=== PATIENT | female | born 1945 | race Caucasian/White ===

== ENCOUNTER 2017-03-29 20:50 | Inpatient (IN) | payer MEDICARE, OTHER ==
[~2017-03-29] VITALS: Ht 157.5 cm; Wt 71.0 kg
[2017-03-29 21:32] VITALS: BP 116/58; PULSE 79; RESP 17; TEMP 98.2; O2SAT 95
[2017-03-29] MEDS ORDERED: NALOXONE HCL 0.4 MG/ML AMP IV PUSH PRN (22:15)
[2017-03-29] MEDS ORDERED: SODIUM CHLORIDE 0.9% FLUSH 10 ML FLUSH IV FLUSH PRN (22:15)
[2017-03-29] MEDS ORDERED: RESP: ALBUTEROL 2.5 MG/IPRATROPIUM 0.5 MG NEB (PRN) NEB (22:15)
[2017-03-29] MEDS ORDERED: DEXTROSE 50% IN WATER 50 ML VIAL(D50) IV PUSH PRN (22:30)
[2017-03-29] MEDS ORDERED: GLUCAGON 1 MG/ML VIAL OTHER PRN (22:30)
[2017-03-29 22:40] VITALS: O2SAT 98
[2017-03-29] MEDS: RESP: ALBUTEROL 2.5 MG/IPRATROPIUM 0.5 MG NEB (SCH) NEB (22:48)
[2017-03-29] MEDS: ENOXAPARIN SODIUM 40 MG/0.4 ML SYRINGE SQ SCH (23:07)
--- NOTE | 2017-03-29 23:13 | HHI.HP ---
HPI Service [facility] . Primary Care Physician Juan Sanchez M.D. . Admission Diagnosis Sepsis, Pneumonia, left lobe Diagnoses: (1) Sepsis (2) Pneumonia involving left lung Chief Complaint: Cough, shortness of breath, fevers Travel History International Travel<30 Days: Yes Contact w/Intl Traveler <30 Da: Yes Name of Country Traveled to: [place] Traveled to Known Affected Are: No History of Present Illness Ms. Bowie is a Kazakh speaking female with a history of type 2 diabetes mellitus, hypertension, asthma, and left breast cancer status post mastectomy who presented to the [place] emergency room on 03/28/2017 complaining of fever, shortness of breath, and productive cough cough who was found to have sepsis and left lobe pneumonia. She has been transferred to [facility] for admission and medical management. The patient is seen in the CDU. She has her son at the bedside. I have offered professional translation service but the patient adamantly refuses and wants to allow her son to speak for her. She is very sleepy and does not remain awake through most of interview despite my best efforts. The patient's son indicates she's very fatigued and tired. He states that she was visiting family in [place] on vacation and returned on 03/28/16 via air travel and was febrile, short of breath, and producing a yellow sputum with frequent congested cough. Fever was as high as 103 and was accompanied by chills and anterior chest wall pain with coughing (only with coughing). She denies any nausea, vomiting, or diarrhea. There are no family members with similar symptoms. Past Family Social History Past Medical History Type 2 diabetes mellitus Hypertension Asthma Left breast cancer status post mastectomy, radiation, and chemotherapy . Past Surgical History Left mastectomy Cholecystectomy . Reported Medications Glyburide Metformin Singulair Lisinopril . Allergies: Coded Allergies: No Known Allergies (Verified Allergy, Unknown, 03/29/17) Active Ordered Medications Current Medications Sodium Chloride (NS Flush) 2 ml UNSCH PRN IV FLUSH FLUSH AFTER USING IV ACCESS ; Start 03/29/17 at 22:15 Sodium Chloride (NS Flush) 2 ml BID IV FLUSH ; Start 03/30/17 at 09:00 Acetaminophen (Tylenol) 650 mg Q4H PRN PO TEMP > 100.4; Start 03/29/17 at 22:15 Enoxaparin Sodium (Lovenox Inj) 40 mg Q24H SQ Last administered on 03/29/17at 23 :07; Start 03/29/17 at 22:00 Naloxone HCl (Narcan Inj) 0.4 mg UNSCH PRN IV PUSH SEE LABEL COMMENTS; Start at 22:15 Azithromycin 500 mg/Sodium Chloride 250 ml @ 250 mls/hr Q24H IV ; Start at 19:00 Ceftriaxone Sodium 1000 mg/ Sodium Chloride 100 ml @ 200 mls/hr Q24H IV ; Start 03/30/17 at 18:00 Albuterol/ Ipratropium (Duoneb Neb) 1 ampule Q6HR NEB NEB Last administered on 03/29/17at 22:48; Start 03/29/17 at 22:15 Albuterol/ Ipratropium (Duoneb Neb) 1 ampule Q2HR NEB PRN NEB SOB/WHEEZING; Start 03/29/17 at 22:15 Dextrose (D50w (Vial) Inj) 50 ml UNSCH PRN IV PUSH HYPOGLYCEMIA-SEE COMMENTS; Start 03/29/17 at 22:30 Glucagon (Glucagon Inj) 1 mg UNSCH PRN OTHER HYPOGLYCEMIA-SEE COMMENTS; Start 03/29/17 at 22:30 Insulin Aspart (NovoLOG SUPPLEMENTAL SCALE) 1 ACHS SLIDING SCALE SQ ; Start 03/05 at 08:00 . Family History No other family members with fevers or respiratory symptoms . Social History Tobacco: Quit smoking 10 years ago, smoked 1 pack per day since teens Alcohol: Rare social alcohol intake Illicit Drugs: Denies . Physical Exam Vital Signs Vital Signs Date Time Temp Pulse Resp B/P (MAP) Pulse Ox O2 Delivery O2 Flow Rate FiO2 03/29/17 21:32 98.2 79 17 116/58 (77) 95 Physical Exam GENERAL: This is a fatigued and lethargic elderly female patient, in no apparent distress. SKIN: No rashes. Cool and dry. HEAD: Atraumatic. Normocephalic. EYES: No scleral icterus. No injection or drainage. ENT: Nose without bleeding, purulent drainage. NECK: Trachea midline. No JVD. CARDIOVASCULAR: Occasional premature heartbeats noted; no gallops, or rubs. I/ systolic murmur best heard in mitral region. RESPIRATORY: Breath sounds diminished on left and at right base. No wheezes, rales, or rhonchi. GASTROINTESTINAL: Abdomen soft, non-tender, nondistended. No guarding. MUSCULOSKELETAL: Extremities without clubbing, cyanosis, or edema. No calf tenderness. NEUROLOGICAL: Fatigued and lethargic but follows commands and answers questions. Normal speech. . Laboratory From [place]: Laboratory Tests Test 03/29/17 17:20 03/29/17 19:45 White Blood Count 19.1 TH/MM3 Red Blood Count 3.84 MIL/MM3 Hemoglobin 11.5 GM/DL Hematocrit 33.7 % Mean Corpuscular Volume 87.8 FL Mean Corpuscular Hemoglobin 29.9 PG Mean Corpuscular Hemoglobin Concent 34.1 % Red Cell Distribution Width 13.3 % Platelet Count 206 TH/MM3 Mean Platelet Volume 10.2 FL Immature Granulocyte % (Auto) 0.8 % Neutrophils (%) (Auto) 86.3 % Lymphocytes (%) (Auto) 6.4 % Monocytes (%) (Auto) 6.3 % Eosinophils (%) (Auto) 0.0 % Basophils (%) (Auto) 0.2 % Immature Granulocyte # (Auto) 0.2 TH/MM3 Neutrophils # (Auto) 16.5 TH/MM3 Lymphocytes # (Auto) 1.2 TH/MM3 Monocytes # (Auto) 1.2 TH/MM3 Eosinophils # (Auto) 0.0 TH/MM3 Basophils # (Auto) 0.0 TH/MM3 CBC Comment AUTO DIFF Differential Total Cells Counted 100 Neutrophils % (Manual) 58 % Band Neutrophils % 30 % Lymphocytes % 6 % Monocytes % 6 % Neutrophils # (Manual) 16.8 TH/MM3 Differential Comment FINAL DIFF MANUAL Toxic Granulation 1+ Toxic Vacuolation PRESENT Dohle Bodies PRESENT Platelet Estimate NORMAL Platelet Morphology Comment NORMAL Red Cell Morphology Comment NORMAL Blood Urea Nitrogen 14 MG/DL Creatinine 1.00 MG/DL Random Glucose 171 MG/DL Total Protein 7.1 GM/DL Albumin 3.2 GM/DL Calcium Level 8.9 MG/DL Alkaline Phosphatase 49 U/L Aspartate Amino Transf (AST/SGOT) 22 U/L Alanine Aminotransferase (ALT/SGPT) 21 U/L Total Bilirubin 0.7 MG/DL Sodium Level 136 MEQ/L Potassium Level 3.4 MEQ/L Chloride Level 101 MEQ/L Carbon Dioxide Level 26.0 MEQ/L Anion Gap 9 MEQ/L Estimat Glomerular Filtration Rate 55 ML/MIN Troponin I 0.02 NG/ML Lactic Acid Level 1.0 mmol/L Imaging From [place]: Last Impressions Chest X-Ray 03/29/17 1711 Signed Impressions: Service Date/Time: March 17:56 - CONCLUSION: Consolidative opacity in the left lung most characteristic of pneumonia. Ignacio Santos MD . Caprini VTE Risk Assessment Caprini VTE Risk Assessment: Mod/High Risk (score >= 2) Caprini Risk Assessment Model Point Value = 1 Point Value = 2 Point Value = 3 Point Value = 5 Age 41-60 Minor surgery BMI > 25 kg/m2 Swollen legs Varicose veins or History of unexplained or recurrent spontaneous Oral contraceptives or hormone replacement Sepsis (< 1 month) Serious lung disease, including pneumonia (< 1 month) Abnormal pulmonary function Acute myocardial infarction Congestive heart failure (< 1 month) History of inflammatory bowel disease Medical patient at bed rest Age 61-74 Arthroscopic surgery Major open surgery (> 45 min) Laparoscopic surgery (> 45 min) Malignancy Confined to bed (> 72 hours) Immobilizing plaster cast Central venous access Age >= 75 History of VTE Family history of VTE Factor V Leiden Prothrombin [id number] Lupus anticoagulant Anticardiolipin antibodies Elevated serum homocysteine Heparin-induced thrombocytopenia Other congenital or acquired thrombophilia Stroke (< 1 month) Elective arthroplasty Hip, pelvis, or leg fracture Acute spinal cord injury (< 1 month) Prophylaxis Regimen Total Risk Factor Score Risk Level Prophylaxis Regimen 0-1 Low Early ambulation 2 Moderate Order ONE of the following: *Sequential Compression Device (SCD) *Heparin 5000 units SQ BID 3-4 Higher Order ONE of the following medications: *Heparin 5000 units SQ TID *Enoxaparin/Lovenox 40 mg SQ daily (WT < 150 kg, CrCl > 30 mL/min) *Enoxaparin/Lovenox 30 mg SQ daily (WT < 150 kg, CrCl > 10-29 mL/min) *Enoxaparin/Lovenox 30 mg SQ BID (WT < 150 kg, CrCl > 30 mL/min) AND/OR *Sequential Compression Device (SCD) 5 or more Highest Order ONE of the following medications: *Heparin 5000 units SQ TID (Preferred with Epidurals) *Enoxaparin/Lovenox 40 mg SQ daily (WT < 150 kg, CrCl > 30 mL/min) *Enoxaparin/Lovenox 30 mg SQ daily (WT < 150 kg, CrCl > 10-29 mL/min) *Enoxaparin/Lovenox 30 mg SQ BID (WT < 150 kg, CrCl > 30 mL/min) AND *Sequential Compression Device (SCD) Assessment and Plan Problem List: (1) Pneumonia involving left lung ICD Code: J18.9 - Pneumonia, unspecified organism (2) Sepsis ICD Code: A41.9 - Sepsis, unspecified organism (3) Type 2 diabetes mellitus ICD Code: E11.9 - Type 2 diabetes mellitus without complications Status: Chronic (4) Asthma ICD Code: J45.909 - Unspecified asthma, uncomplicated Status: Chronic (5) Hypertension ICD Code: I10 - Essential (primary) hypertension Status: Chronic Assessment and Plan Ms. Bowie is a Kazakh speaking female with a history of type 2 diabetes mellitus, hypertension, asthma, and left breast cancer status post mastectomy who presented to the [place] emergency room on 03/28/2017 complaining of fever, shortness of breath, and productive cough cough who was found to have sepsis and left lobe pneumonia. She has been transferred to [facility] for admission and medical management. Left lung pneumonia Sepsis - Temperature 103.1 on admission, tachycardia with pulse of 95, hypoxia with supplemental oxygen being required to maintain oxygen saturation greater than 92 %, pneumonia on chest x-ray - meets criteria for sepsis - CT pulmonary angiogram negative for PE - Negative for flu A and B - Antibiotics: Azithromycin 500 mg IV every 24 hours and Ceftriaxone 1 g every 24 hours - Duo nebulizers every 6 hours scheduled and every 2 hours as needed for shortness of breath and wheezing - We'll consult physical therapy to help prevent debility - Supplemental oxygen titrated to maintain oxygen saturation greater than 92% Type 2 Diabetes Mellitus - Hold home oral hypoglycemic medications - discussed with patient's family - her medications are glyburide metformin - Accu-Cheks before meals and at bedtime with low-dose NovoLog sliding scale coverage - Hypoglycemia protocol - Monitor trends and blood glucose readings and adjust treatments as indicated Hypertension - Patient's blood pressure is on the low side of normal - she takes lisinopril at home but is uncertain of dose - Need to verify patient's dose of lisinopril DVT prophylaxis - Lovenox 40 mg subcutaneous every 24 hours . Discussed Condition With Patient, patient's son, RN, and Dr. Fonseca Physician Certification 2 Midnight Certification Type: Admission for Inpatient Services Order for Inpatient Services The services are ordered in accordance with Medicare regulations or non- Medicare payer requirements, as applicable. In the case of services not specified as inpatient-only, they are appropriately provided as inpatient services in accordance with the 2-midnight benchmark. Estimated LOS (days): 3 days is the estimated time the patient will need to remain in the hospital, assuming treatment plan goals are met and no additional complications. Post-Hospital Plan: Home Yumi Zaidi Mar 29, 2017 23:13
[2017-03-30] VITALS (11 sets, daily range): BP systolic 108–171; BP diastolic 52–73; PULSE 74–106; RESP 17–24; TEMP 98–100.5; O2SAT 93–96
[2017-03-30] MEDS: RESP: ALBUTEROL 2.5 MG/IPRATROPIUM 0.5 MG NEB (SCH) NEB ×3 (03:41→22:00)
[2017-03-30] MEDS: ACETAMINOPHEN 325 MG TAB PO PRN ×2 (07:14→17:22)
[2017-03-30 07:39] LABS: AUTOMATED NEUTROPHIL # 17.8 TH/MM3 (1.8-7.7); BASOPHIL % 0.2 % (0.0-2.0); HEMATOCRIT 31.9 % (35.0-46.0); HEMOGLOBIN 10.9 GM/DL (11.6-15.3); LYMPH % 5.5 % (9.0-44.0); LYMPHOCYTE # 1.1 TH/MM3 (1.0-4.8); MEAN CELL VOLUME 87.8 FL (80.0-100.0); MEAN CORPUSCULAR HEMOGLOBIN 29.9 PG (27.0-34.0); MEAN CORPUSCULAR HGB CONC 34.1 % (32.0-36.0); MEAN PLATELET VOLUME 8.4 FL (7.0-11.0); MONO % 2.9 % (0.0-8.0); MONOCYTE # 0.6 TH/MM3 (0-0.9); NEUT % 91.4 % (16.0-70.0); PLATELET COUNT 192 TH/MM3 (150-450); RED BLOOD COUNT 3.63 MIL/MM3 (4.00-5.30); RED CELL DISTRIBUTION WIDTH 13.9 % (11.6-17.2); WHITE BLOOD COUNT 19.5 TH/MM3 (4.0-11.0)
[2017-03-30 08:05] LABS: BICARBONATE 26.1 MEQ/L (21.0-32.0); CALCIUM 8.2 MG/DL (8.5-10.1); CREATININE 0.61 MG/DL (0.50-1.00)
[2017-03-30 08:36] LABS: BANDS 15 % (0-6); LYMPHOCYTES 6 % (9-44); MONOCYTES 4 % (0-8); NEUTROPHIL # MANUAL DIFF 17.6 TH/MM3 (1.8-7.7); POLYS (SEG NEUTROPHILS) 75 % (16-70)
[2017-03-30] MEDS: SODIUM CHLORIDE 0.9% FLUSH 10 ML FLUSH IV FLUSH SCH ×3 (09:00→20:53)
[2017-03-30] MEDS: INSULIN ASPART SUPPLEMENTAL SCALE SQ SCH ×4 (09:01→20:53)
--- NOTE | 2017-03-30 10:14 | HHI.PR ---
Subjective Remarks in no acute distress. T max 103.1. overall feeling somewhat better than yesterday. son at the bedside. Objective Vitals Vital Signs Date Time Temp Pulse Resp B/P (MAP) Pulse Ox O2 Delivery O2 Flow Rate FiO2 03/30/17 07:36 100.0 96 24 122/58 (79) 93 03/30/17 05:08 99.8 88 17 125/60 (81) 95 03/30/17 05:00 95 03/30/17 01:52 74 03/30/17 01:45 98.0 74 18 108/52 (70) 94 03/29/17 22:40 98 Nasal Cannula 2.00 03/29/17 21:32 98.2 79 17 116/58 (77) 95 Result Diagram: 03/30/17 0710 03/30/17 0710 Objective Remarks GENERAL: in no acute distress but looks somewhat ill. CARDIOVASCULAR: Regular rate and regular rhythm without murmurs, gallops, or rubs. RESPIRATORY: rales on the left base. GASTROINTESTINAL: Abdomen soft, non-tender, nondistended. Normal, active bowel sounds MUSCULOSKELETAL: Extremities without clubbing, cyanosis, or edema. NEURO: Alert & Oriented x4 to person, place, time, situation. Moves all ext x4 Medications and IVs Inpatient Medications Acetaminophen (Tylenol) 650 mg Q4H PRN PO TEMP > 100.4 Last administered on 03/05at 07:14; Start 03/29/17 at 22:15 Albuterol/ Ipratropium (Duoneb Neb) 1 ampule Q2HR NEB PRN NEB SOB/WHEEZING; Start 03/29/17 at 22:15 Azithromycin 500 mg/Sodium Chloride 250 ml @ 250 mls/hr Q24H IV ; Start at 19:00 Ceftriaxone Sodium 1000 mg/ Sodium Chloride 100 ml @ 200 mls/hr Q24H IV ; Start 03/30/17 at 18:00 Dextrose (D50w (Vial) Inj) 50 ml UNSCH PRN IV PUSH HYPOGLYCEMIA-SEE COMMENTS; Start 03/29/17 at 22:30 Enoxaparin Sodium (Lovenox Inj) 40 mg Q24H SQ Last administered on 03/29/17at 23 :07; Start 03/29/17 at 22:00 Glucagon (Glucagon Inj) 1 mg UNSCH PRN OTHER HYPOGLYCEMIA-SEE COMMENTS; Start 03/29/17 at 22:30 Insulin Aspart (NovoLOG SUPPLEMENTAL SCALE) 1 ACHS SLIDING SCALE SQ ; Start 03/05 at 08:00 Montelukast Sodium (Singulair) 10 mg HS PO ; Start 03/30/17 at 21:00 Naloxone HCl (Narcan Inj) 0.4 mg UNSCH PRN IV PUSH SEE LABEL COMMENTS; Start at 22:15 Sodium Chloride (NS Flush) 2 ml BID IV FLUSH Last administered on 03/30/17at 09: 32; Start 03/30/17 at 09:00 A/P Problem List: (1) Pneumonia involving left lung ICD Code: J18.9 - Pneumonia, unspecified organism (2) Sepsis ICD Code: A41.9 - Sepsis, unspecified organism (3) Type 2 diabetes mellitus ICD Code: E11.9 - Type 2 diabetes mellitus without complications Status: Chronic (4) Asthma ICD Code: J45.909 - Unspecified asthma, uncomplicated Status: Chronic (5) Hypertension ICD Code: I10 - Essential (primary) hypertension Status: Chronic Assessment and Plan A/P Left lung pneumonia Sepsis - Temperature 103.1 on admission, tachycardia with pulse of 95, hypoxia with supplemental oxygen being required to maintain oxygen saturation greater than 92 %, pneumonia on chest x-ray - meets criteria for sepsis - Negative for flu A and B - Antibiotics: Azithromycin 500 mg IV every 24 hours and Ceftriaxone 1 g every 24 hours - Duo nebulizers every 6 hours scheduled and every 2 hours as needed for shortness of breath and wheezing - physical therapy to help prevent debility - Supplemental oxygen titrated to maintain oxygen saturation greater than 92% Type 2 Diabetes Mellitus - Hold home oral hypoglycemic medications - discussed with patient's family - her medications are glyburide metformin - Accu-Cheks before meals and at bedtime with low-dose NovoLog sliding scale coverage - Hypoglycemia protocol - Monitor trends and blood glucose readings and adjust treatments as indicated Hypertension - Patient's blood pressure is on the low side of normal - she takes lisinopril at home but is uncertain of dose - Need to verify patient's dose of lisinopril DVT prophylaxis - Lovenox 40 mg subcutaneous every 24 hours Discharge Planning feels somewhat better but still ill-looking. not ready for discharge yet. Draryl Joseph MD Mar 30, 2017 10:14
[2017-03-30] MEDS ORDERED: LISI-515 PO ×2 (12:49→14:55)
[2017-03-30] MEDS: LISINOPRIL 20 MG TAB PO SCH (14:14)
[2017-03-30] MEDS ORDERED: VENTAER INH (14:55)
[2017-03-30] MEDS ORDERED: TRAZ50TA12 PO (14:55)
[2017-03-30] MEDS ORDERED: OMEP40CA2 PO (14:55)
[2017-03-30] MEDS ORDERED: OMEG1CAP53 PO (14:55)
[2017-03-30] MEDS ORDERED: PRAV10TA PO (14:55)
[2017-03-30] MEDS ORDERED: METF500T PO (14:55)
[2017-03-30] MEDS ORDERED: FAMO20TA2 PO (14:55)
[2017-03-30] MEDS ORDERED: ADVA250A INH (14:55)
[2017-03-30] MEDS ORDERED: FLUTI110I INH (14:55)
[2017-03-30] MEDS ORDERED: FISH100020 (14:55)
[2017-03-30] MEDS ORDERED: MONT10TA2 PO (14:55)
[2017-03-30] MEDS ORDERED: AMLO10TA2 PO (14:55)
[2017-03-30] MEDS: cefTRIAXone INJ 1,000 MG in SODIUM CHLORIDE 0.9% INJ 100 ML IV SCH (17:22)
[2017-03-30] MEDS: AZITHROMYCIN INJ 500 MG in SODIUM CHLOR 0.9% 250 ML INJ 250 ML IV SCH (19:09)
[2017-03-30] MEDS: MONTELUKAST SODIUM 10 MG TAB PO SCH (20:52)
[2017-03-30] MEDS: ENOXAPARIN SODIUM 40 MG/0.4 ML SYRINGE SQ SCH (20:53)
[2017-03-31] VITALS (9 sets, daily range): BP systolic 139–188; BP diastolic 65–79; PULSE 84–102; RESP 18–24; TEMP 96.9–98.6; O2SAT 96–98
[2017-03-31] MEDS: ACETAMINOPHEN 325 MG TAB PO PRN ×3 (00:20→17:48)
[2017-03-31] MEDS: RESP: ALBUTEROL 2.5 MG/IPRATROPIUM 0.5 MG NEB (SCH) NEB ×4 (03:35→19:39)
[2017-03-31 07:38] LABS: AUTOMATED NEUTROPHIL # 13.7 TH/MM3 (1.8-7.7); BASOPHIL % 0.2 % (0.0-2.0); EOSINOPHIL % 0.2 % (0.0-4.0); HEMATOCRIT 31.3 % (35.0-46.0); HEMOGLOBIN 10.6 GM/DL (11.6-15.3); LYMPH % 7.4 % (9.0-44.0); LYMPHOCYTE # 1.2 TH/MM3 (1.0-4.8); MEAN CELL VOLUME 87.5 FL (80.0-100.0); MEAN CORPUSCULAR HEMOGLOBIN 29.5 PG (27.0-34.0); MEAN CORPUSCULAR HGB CONC 33.8 % (32.0-36.0); MEAN PLATELET VOLUME 8.5 FL (7.0-11.0); MONO % 3.9 % (0.0-8.0); MONOCYTE # 0.6 TH/MM3 (0-0.9); NEUT % 88.3 % (16.0-70.0); PLATELET COUNT 182 TH/MM3 (150-450); RED BLOOD COUNT 3.58 MIL/MM3 (4.00-5.30); WHITE BLOOD COUNT 15.6 TH/MM3 (4.0-11.0)
[2017-03-31] MEDS: LISINOPRIL 20 MG TAB PO SCH (08:37)
[2017-03-31] MEDS: SODIUM CHLORIDE 0.9% FLUSH 10 ML FLUSH IV FLUSH SCH ×2 (08:38→21:30)
[2017-03-31] MEDS: INSULIN ASPART SUPPLEMENTAL SCALE SQ SCH ×4 (08:38→21:00)
--- NOTE | 2017-03-31 12:45 | HHI.PR ---
Subjective Remarks in no acute distress. sob has improved- although still on three liters of oxygen via N/C. T max 1005. overall feeling better. Objective Vitals Vital Signs Date Time Temp Pulse Resp B/P (MAP) Pulse Ox O2 Delivery O2 Flow Rate FiO2 03/31/17 09:04 97.1 94 24 188/78 (114) 97 03/31/17 07:32 96 Nasal Cannula 3.00 03/31/17 04:00 90 03/31/17 01:20 15 03/31/17 00:53 98.6 84 18 153/79 (103) 98 03/31/17 00:00 95 03/31/17 00:00 Nasal Cannula 3.00 03/30/17 19:44 99.0 91 18 139/63 (88) 94 03/30/17 17:11 100.5 102 20 132/63 (86) 96 03/30/17 15:40 106 Result Diagram: 03/31/17 0700 03/30/17 0710 Objective Remarks GENERAL: in no acute distress -overall looks better today. CARDIOVASCULAR: Regular rate and regular rhythm without murmurs, gallops, or rubs. RESPIRATORY: rales on the left base. GASTROINTESTINAL: Abdomen soft, non-tender, nondistended. Normal, active bowel sounds MUSCULOSKELETAL: Extremities without clubbing, cyanosis, or edema. NEURO: Alert & Oriented x4 to person, place, time, situation. Moves all ext x4 Medications and IVs Inpatient Medications Acetaminophen (Tylenol) 650 mg Q4H PRN PO TEMP > 100.4 Last administered on at 07:30; Start 03/29/17 at 22:15 Albuterol/ Ipratropium (Duoneb Neb) 1 ampule Q2HR NEB PRN NEB SOB/WHEEZING; Start 03/29/17 at 22:15 Azithromycin 500 mg/Sodium Chloride 250 ml @ 250 mls/hr Q24H IV Last administered on 03/30/17at 19:09; Start 03/30/17 at 19:00 Ceftriaxone Sodium 1000 mg/ Sodium Chloride 100 ml @ 200 mls/hr Q24H IV Last administered on 03/30/17at 17:22; Start 03/30/17 at 18:00 Dextrose (D50w (Vial) Inj) 50 ml UNSCH PRN IV PUSH HYPOGLYCEMIA-SEE COMMENTS; Start 03/29/17 at 22:30 Enoxaparin Sodium (Lovenox Inj) 40 mg Q24H SQ Last administered on 03/30/17at 20 :53; Start 03/29/17 at 22:00 Glucagon (Glucagon Inj) 1 mg UNSCH PRN OTHER HYPOGLYCEMIA-SEE COMMENTS; Start 03/29/17 at 22:30 Insulin Aspart (NovoLOG SUPPLEMENTAL SCALE) 1 ACHS SLIDING SCALE SQ Last administered on 03/31/17at 08:38; Start 03/30/17 at 08:00 Lisinopril (Prinivil) 20 mg DAILY PO Last administered on 03/31/17at 08:37; Start 03/30/17 at 13:15 Montelukast Sodium (Singulair) 10 mg HS PO Last administered on 03/30/17at 20:52 ; Start 03/30/17 at 21:00 Naloxone HCl (Narcan Inj) 0.4 mg UNSCH PRN IV PUSH SEE LABEL COMMENTS; Start at 22:15 Sodium Chloride (NS Flush) 2 ml BID IV FLUSH Last administered on 03/31/17at 08: 38; Start 03/30/17 at 09:00 A/P Problem List: (1) Pneumonia involving left lung ICD Code: J18.9 - Pneumonia, unspecified organism (2) Sepsis ICD Code: A41.9 - Sepsis, unspecified organism (3) Type 2 diabetes mellitus ICD Code: E11.9 - Type 2 diabetes mellitus without complications Status: Chronic (4) Asthma ICD Code: J45.909 - Unspecified asthma, uncomplicated Status: Chronic (5) Hypertension ICD Code: I10 - Essential (primary) hypertension Status: Chronic Assessment and Plan A/P Left lung pneumonia Sepsis - Negative for flu A and B - Antibiotics: Azithromycin 500 mg IV every 24 hours and Ceftriaxone 1 g every 24 hours - Duo nebulizers every 6 hours scheduled and every 2 hours as needed for shortness of breath and wheezing - physical therapy to help prevent debility - Supplemental oxygen titrated to maintain oxygen saturation greater than 92%; will try to wean her off the oxygen today. Type 2 Diabetes Mellitus - Hold home oral hypoglycemic medications - discussed with patient's family - her medications are glyburide metformin - Accu-Cheks before meals and at bedtime with low-dose NovoLog sliding scale coverage - Hypoglycemia protocol - Monitor trends and blood glucose readings and adjust treatments as indicated Hypertension - continue lisinopril- will resume amlodipine -continue to monitor and adjust the regimen as needed. DVT prophylaxis - Lovenox 40 mg subcutaneous every 24 hours Discharge Planning looks and feels better today. possible dc home within the next 24-48 hrs if continues to improve. Darryl Joseph MD Mar 31, 2017 12:45
[2017-03-31] MEDS: MONTELUKAST SODIUM 10 MG TAB PO SCH ×2 (13:15→21:00)
[2017-03-31] MEDS: PRAVASTATIN SOD 10 MG TAB PO SCH (13:18)
[2017-03-31] MEDS: PANTOPRAZOLE SOD 40 MG DELAYED RELEASE TAB PO SCH (13:18)
[2017-03-31] MEDS: cefTRIAXone INJ 1,000 MG in SODIUM CHLORIDE 0.9% INJ 100 ML IV SCH (17:49)
[2017-03-31] MEDS: AZITHROMYCIN INJ 500 MG in SODIUM CHLOR 0.9% 250 ML INJ 250 ML IV SCH (18:53)
[2017-03-31] MEDS: ENOXAPARIN SODIUM 40 MG/0.4 ML SYRINGE SQ SCH (21:29)
[2017-04-01] VITALS (12 sets, daily range): BP systolic 140–168; BP diastolic 67–75; PULSE 73–107; RESP 18–20; TEMP 97.6–98.8; O2SAT 95–97
[2017-04-01] MEDS: ACETAMINOPHEN 325 MG TAB PO PRN ×2 (03:02→23:52)
[2017-04-01] MEDS: RESP: ALBUTEROL 2.5 MG/IPRATROPIUM 0.5 MG NEB (SCH) NEB ×4 (03:24→20:24)
[2017-04-01] MEDS: INSULIN ASPART SUPPLEMENTAL SCALE SQ SCH ×4 (08:00→22:04)
[2017-04-01 10:19] LABS: AUTOMATED NEUTROPHIL # 7.7 TH/MM3 (1.8-7.7); BASOPHIL % 0.5 % (0.0-2.0); EOSINOPHIL # 0.1 TH/MM3 (0-0.4); EOSINOPHIL % 0.9 % (0.0-4.0); HEMATOCRIT 32.4 % (35.0-46.0); LYMPH % 13.4 % (9.0-44.0); LYMPHOCYTE # 1.3 TH/MM3 (1.0-4.8); MEAN CELL VOLUME 86.7 FL (80.0-100.0); MEAN CORPUSCULAR HEMOGLOBIN 29.5 PG (27.0-34.0); MEAN PLATELET VOLUME 8.7 FL (7.0-11.0); MONO % 6.4 % (0.0-8.0); MONOCYTE # 0.6 TH/MM3 (0-0.9); NEUT % 78.8 % (16.0-70.0); PLATELET COUNT 248 TH/MM3 (150-450); RED BLOOD COUNT 3.74 MIL/MM3 (4.00-5.30); WHITE BLOOD COUNT 9.7 TH/MM3 (4.0-11.0)
[2017-04-01] MEDS: LISINOPRIL 20 MG TAB PO SCH (10:20)
[2017-04-01] MEDS: PANTOPRAZOLE SOD 40 MG DELAYED RELEASE TAB PO SCH (10:20)
[2017-04-01] MEDS: PRAVASTATIN SOD 10 MG TAB PO SCH (10:21)
[2017-04-01] MEDS: MONTELUKAST SODIUM 10 MG TAB PO SCH ×2 (10:21→20:48)
[2017-04-01] MEDS: SODIUM CHLORIDE 0.9% FLUSH 10 ML FLUSH IV FLUSH SCH ×2 (10:22→20:47)
--- NOTE | 2017-04-01 14:10 | HHI.PR ---
Subjective Remarks Patient states breathing is improving. Patient is down from 3 L nasal cannula to 2 L nasal cannula and satting well. Denies fevers or chills per The patient is still coughing. Objective Vitals Vital Signs Date Time Temp Pulse Resp B/P (MAP) Pulse Ox O2 Delivery O2 Flow Rate FiO2 04/01/17 11:07 97 Nasal Cannula 21 04/01/17 07:54 98.6 76 18 147/68 (94) 97 04/01/17 04:26 97.6 97 18 159/68 (98) 96 04/01/17 04:16 89 04/01/17 02:05 Nasal Cannula 3.00 04/01/17 00:45 89 04/01/17 00:00 97.8 92 18 168/75 (106) 95 03/31/17 20:05 90 03/31/17 20:00 97.3 96 20 149/70 (96) 97 03/31/17 19:41 96 Nasal Cannula 3.00 03/31/17 17:12 96.9 102 20 139/65 (89) 98 03/31/17 16:33 92 1.00 I/O 03/31/17 03/31/17 03/31/17 04/01/17 04/01/17 04/01/17 07:00 15:00 23:00 07:00 15:00 23:00 Intake Total 172 ml 240 ml Balance 172 ml 240 ml Intake Oral 172 ml 240 ml # Voids 2 1 # Bowel Movements 1 Result Diagram: 04/01/17 0907 03/30/17 0710 Imaging Chest x-ray reviewed by me obtained on 03/29/17 shows a consolidative opacity in the left lung. Objective Remarks AAOx3 (+) rales in left lower lung field, rest clear. S1S2 RRR with a systolic II/ best hear at the apex abdomen is soft, non tender, non distended No edema in lower extremities no JVD Medications and IVs Current Medications Medications (Trade) Dose Ordered Sig/Camila Route Start Time Stop Time Status Last Admin (NS Flush) 2 ml UNSCH PRN IV FLUSH 03/29/17 22:15 (NS Flush) 2 ml BID IV FLUSH 03/30/17 09:00 04/01/17 10:22 (Tylenol) 650 mg Q4H PRN PO 03/29/17 22:15 04/01/17 03:02 (Lovenox Inj) 40 mg Q24H SQ 03/29/17 22:00 03/31/17 21:29 (Narcan Inj) 0.4 mg UNSCH PRN IV PUSH 03/29/17 22:15 Azithromycin 500 mg/Sodium Chloride 250 ml @ 250 mls/hr Q24H IV 03/30/17 19:00 03/31/17 18:53 Ceftriaxone Sodium 1000 mg/ Sodium Chloride 100 ml @ 200 mls/hr Q24H IV 03/30/17 18:00 03/31/17 17:49 (Duoneb Neb) 1 ampule Q6HR NEB NEB 03/29/17 22:15 04/01/17 11:07 (Duoneb Neb) 1 ampule Q2HR NEB PRN NEB 03/29/17 22:15 (D50w (Vial) Inj) 50 ml UNSCH PRN IV PUSH 03/29/17 22:30 (Glucagon Inj) 1 mg UNSCH PRN OTHER 03/29/17 22:30 (NovoLOG SUPPLEMENTAL SCALE) 1 ACHS SLIDING SCALE SQ 03/30/17 08:00 03/31/17 08:38 (Singulair) 10 mg HS PO 03/30/17 21:00 03/31/17 21:00 (Prinivil) 20 mg DAILY PO 03/30/17 13:15 04/01/17 10:20 (Norvasc) 10 mg DAILY PO 03/31/17 13:00 04/01/17 10:20 (Singulair) 10 mg DAILY PO 03/31/17 13:00 04/01/17 10:21 (Pravachol) 10 mg DAILY PO 03/31/17 13:00 04/01/17 10:21 (Protonix) 40 mg DAILY PO 03/31/17 13:00 04/01/17 10:20 A/P Problem List: (1) Sepsis ICD Code: A41.9 - Sepsis, unspecified organism Plan: Patient admitted to the medical floor. Patient started on supportive treatment with IV fluids, IV antibiotics. Blood cultures obtained in digital toenails ED department are negative 3. Continue IV fluids and antibiotics for now. Sepsis present on admission with leukocytosis and bandemia of 15%. (2) Pneumonia involving left lung ICD Code: J18.9 - Pneumonia, unspecified organism Plan: Chest x-ray showed a left sided infiltrate. Repeat by me. The patient was admitted to the medical floor for further therapy with IV antibiotics with azithromycin and Rocephin. Patient also started on DuoNeb nebulizer treatments which will be continued. Patient also placed on supplemental oxygen to keep an oxygen saturation more than 92%. We'll try to continue wean her off oxygen. The patient is currently on 2 L nasal cannula. Upon review of the chest x-ray it is noted that the location of the upper trait is somewhat unusual and given that the patient has a history of being a former smoker and a previous history of breast cancer I will order a CT of the chest without IV contrast to rule out any possible existing mass. (3) Type 2 diabetes mellitus ICD Code: E11.9 - Type 2 diabetes mellitus without complications Status: Chronic Plan: Oral hypoglycemic medications were held. SSI with insulin NovoLog, monitor Accu-Cheks. (4) Asthma ICD Code: J45.909 - Unspecified asthma, uncomplicated Status: Chronic Plan: Seems to be stable. The patient does not have any wheezing on exam. Continue DuoNeb treatments. (5) Hypertension ICD Code: I10 - Essential (primary) hypertension Status: Chronic Plan: Patient's blood pressure had been elevated, however no better. Tenial home antihypertensive medications. The patient is currently on lisinopril and amlodipine. We'll continue to monitor blood pressures and adjust regimen as needed. Assessment and Plan DVT prophylaxis: Lovenox 40 mg subcutaneous every 24 hours Discharge Planning Continue to monitor in the medical floor. Pending CT of the chest and clinical improvement. Problem Qualifiers (1) Pneumonia involving left lung: Qualified Codes: J18.9 - Pneumonia, unspecified organism (2) Hypertension: Qualified Codes: I10 - Essential (primary) hypertension Riki Schwarz MD Apr 01, 2017 14:10
[2017-04-01 16:33] LABS: % SATURATION IRON PROFILE 13.4 % (20-50); IRON (FE) 43 MCG/DL (50-170); TOTAL IRON BINDING CAPACITY 321 MCG/DL (250-450)
[2017-04-01 16:36] LABS: FERRITIN 163 NG/ML (8-252)
[2017-04-01] MEDS: cefTRIAXone INJ 1,000 MG in SODIUM CHLORIDE 0.9% INJ 100 ML IV SCH (18:22)
--- NOTE | 2017-04-01 18:59 | RADRPT ---
EXAM DATE/TIME: 04/01/2017 18:33 [place] COMPARISON: CHEST SINGLE AP, March 29, 2017, 17:56. INDICATIONS : Shortness of breath, evaluate for pneumonia. RADIATION DOSE: 5.1 CTDIvol (mGy) MEDICAL HISTORY : Carcinoma, breast. Hypertension. diabetes SURGICAL HISTORY : mastectomy ENCOUNTER: Initial ACUITY: 1 day PAIN SCALE: 0/10 LOCATION: Bilateral chest TECHNIQUE: Volumetric scanning of the chest was performed. Using automated exposure control and adjustment of t he mA and/or kV according to patient size, radiation dose was kept as low as reasonably achievable to obtain optimal diagnostic quality images. DICOM format image data is available electronically for r eview and comparison. Follow-up recommendations for detected pulmonary nodules are based at a minimum on nodule size and pa tient risk factors according to Fleischner Society Guidelines. FINDINGS: Areas of consolidation with air bronchograms seen in the left upper and lower lobes compatibles pneum onia. Tiny left base pleural effusion. No pneumothorax. There is a 6 mm nodule of the right upper lobe, series 3 are 2 image 21. The right lung is otherwise clear. No mediastinal or hilar lymphadenopathy demonstrated. Also no evidence of axillary lymphadenopathy. M astectomy and axillary node dissection changes are seen on the left. No fracture, lytic or sclerotic lesions of the visualized osseous structures. CONCLUSION: 1. Left upper and lower lobe pneumonia with a tiny pleural effusion. 2. 6 mm right upper lobe pulmonary nodule. 3-6 month followup noncontrast chest CT recommended. Olivier Phillips MD on April 01, 2017 at 18:53 Board Certified Radiologist. This report was verified electronically.
[2017-04-01] MEDS: AZITHROMYCIN INJ 500 MG in SODIUM CHLOR 0.9% 250 ML INJ 250 ML IV SCH (20:46)
[2017-04-01] MEDS: ENOXAPARIN SODIUM 40 MG/0.4 ML SYRINGE SQ SCH (20:48)
[2017-04-02] VITALS (7 sets, daily range): BP systolic 132–162; BP diastolic 65–77; PULSE 80–106; RESP 18–20; TEMP 98.1–98.7; O2SAT 93–98
[2017-04-02] MEDS: RESP: ALBUTEROL 2.5 MG/IPRATROPIUM 0.5 MG NEB (SCH) NEB ×3 (03:55→15:33)
[2017-04-02] MEDS: INSULIN ASPART SUPPLEMENTAL SCALE SQ SCH ×2 (09:21→11:52)
[2017-04-02] MEDS: PRAVASTATIN SOD 10 MG TAB PO SCH (09:22)
[2017-04-02] MEDS: SODIUM CHLORIDE 0.9% FLUSH 10 ML FLUSH IV FLUSH SCH (09:22)
[2017-04-02] MEDS: PANTOPRAZOLE SOD 40 MG DELAYED RELEASE TAB PO SCH (09:22)
[2017-04-02] MEDS: LISINOPRIL 20 MG TAB PO SCH (09:22)
[2017-04-02] MEDS: MONTELUKAST SODIUM 10 MG TAB PO SCH (09:22)
[2017-04-02 09:29] LABS: HEMATOCRIT 32.3 % (35.0-46.0); HEMOGLOBIN 11.2 GM/DL (11.6-15.3); MEAN CELL VOLUME 86.5 FL (80.0-100.0); MEAN CORPUSCULAR HEMOGLOBIN 30.1 PG (27.0-34.0); MEAN CORPUSCULAR HGB CONC 34.8 % (32.0-36.0); MEAN PLATELET VOLUME 8.2 FL (7.0-11.0); PLATELET COUNT 288 TH/MM3 (150-450); RED BLOOD COUNT 3.74 MIL/MM3 (4.00-5.30); RED CELL DISTRIBUTION WIDTH 14.1 % (11.6-17.2); WHITE BLOOD COUNT 6.9 TH/MM3 (4.0-11.0)
[2017-04-02 10:06] LABS: BICARBONATE 27.1 MEQ/L (21.0-32.0); CALCIUM 8.7 MG/DL (8.5-10.1); CREATININE 0.49 MG/DL (0.50-1.00)
[2017-04-02] MEDS ORDERED: POTASSIUM CHLORIDE 10 MEQ CONTROLLED RELEASE TAB PO ONE (10:45)
[2017-04-02 15:39] LABS: BICARBONATE 25.6 MEQ/L (21.0-32.0); CALCIUM 8.3 MG/DL (8.5-10.1); CREATININE 0.61 MG/DL (0.50-1.00)
[2017-04-02] MEDS ORDERED: CEFU1TAB20 PO (17:09)
[2017-04-02] MEDS ORDERED: AZIT500T2 PO (17:09)
--- NOTE | 2017-04-02 17:09 | HHI.DCPOC ---
Discharge Care Plan Diagnosis: (1) Sepsis (2) Hypertension (3) Type 2 diabetes mellitus (4) Pneumonia involving left lung (5) Asthma Goals to Promote Your Health * To prevent worsening of your condition and complications * To maintain your health at the optimal level Directions to Meet Your Goals Take your medications as prescribed Follow your dietary instruction Follow activity as directed Keep your appointments as scheduled Take your immunizations and boosters as scheduled If your symptoms worsen call your PCP, if no PCP go to Urgent Care Center or Emergency Room Smoking is Dangerous to Your Health. Avoid second hand smoke Call the 24-hour hour crisis hotline for domestic abuse at Riki Schwarz MD Apr 02, 2017 17:09
--- NOTE | 2017-04-02 17:26 | HHI.DS ---
Discharge Summary Admission Date Mar 29, 2017 at 21:00 Discharge Date: Apr 02, 2017 Admitting Diagnosis Sepsis, Pneumonia, left lobe (1) Asthma ICD Code: J45.909 - Unspecified asthma, uncomplicated Diagnosis: Principal Status: Chronic (2) Sepsis ICD Code: A41.9 - Sepsis, unspecified organism Diagnosis: Principal Status: Resolved (3) Pneumonia involving left lung ICD Code: J18.9 - Pneumonia, unspecified organism Diagnosis: Principal Status: Acute (4) Type 2 diabetes mellitus ICD Code: E11.9 - Type 2 diabetes mellitus without complications Diagnosis: Principal Status: Chronic (5) Hypertension ICD Code: I10 - Essential (primary) hypertension Diagnosis: Principal Status: Chronic (6) H/O malignant neoplasm of breast ICD Code: Z85.3 - Personal history of malignant neoplasm of breast Diagnosis: Secondary Status: Resolved (7) H/O intrinsic asthma ICD Code: Z87.09 - Personal history of other diseases of the respiratory system Diagnosis: Secondary Status: Chronic (8) Lung nodule ICD Code: R91.1 - Solitary pulmonary nodule Diagnosis: Principal Status: Acute Procedures none Brief History - From Admission Ms. Bowie is a [place] speaking female with a history of type 2 diabetes mellitus, hypertension, asthma, and left breast cancer status post mastectomy who presented to the [facility] emergency room on 03/28/2017 complaining of fever, shortness of breath, and productive cough cough who was found to have sepsis and left lobe pneumonia. She has been transferred to [facility] for admission and medical management. The patient is seen in the CDU. She has her son at the bedside. I have offered professional translation service but the patient adamantly refuses and wants to allow her son to speak for her. She is very sleepy and does not remain awake through most of interview despite my best efforts. The patient's son indicates she's very fatigued and tired. He states that she was visiting family in [place] on vacation and returned on 03/28/16 via air travel and was febrile, short of breath, and producing a yellow sputum with frequent congested cough. Fever was as high as 103 and was accompanied by chills and anterior chest wall pain with coughing (only with coughing). She denies any nausea, vomiting, or diarrhea. There are no family members with similar symptoms. CBC/BMP: 04/02/17 0815 04/02/17 1458 Significant Findings Laboratory Tests Test 03/31/17 07:00 04/01/17 09:07 04/01/17 15:53 04/02/17 08:15 White Blood Count 15.6 TH/MM3 (4.0-11.0) Red Blood Count 3.58 MIL/MM3 (4.00-5.30) 3.74 MIL/MM3 (4.00-5.30) 3.74 MIL/MM3 (4.00-5.30) Hemoglobin 10.6 GM/DL (11.6-15.3) 11.0 GM/DL (11.6-15.3) 11.2 GM/DL (11.6-15.3) Hematocrit 31.3 % (35.0-46.0) 32.4 % (35.0-46.0) 32.3 % (35.0-46.0) Neutrophils (%) (Auto) 88.3 % (16.0-70.0) 78.8 % (16.0-70.0) Lymphocytes (%) (Auto) 7.4 % (9.0-44.0) Neutrophils # (Auto) 13.7 TH/MM3 (1.8-7.7) Iron Level 43 MCG/DL (50-170) Percent Iron Saturation 13.4 % (20-50) Creatinine 0.49 MG/DL (0.50-1.00) Random Glucose 116 MG/DL (74-106) Potassium Level 3.0 MEQ/L (3.5-5.1) Test 04/02/17 14:58 Random Glucose 196 MG/DL (74-106) Calcium Level 8.3 MG/DL (8.5-10.1) Imaging Last Impressions Chest CT 04/01/17 0000 Signed Impressions: Service Date/Time: Saturday, April 01, 2017 18:33 - CONCLUSION: 1. Left upper and lower lobe pneumonia with a tiny pleural effusion. 2. 6 mm right upper lobe pulmonary nodule. 3-6 month followup noncontrast chest CT recommended. Olivier Phillips MD PE at Discharge AAOx3 (+) rales in left lower lung field, rest clear. S1S2 RRR with a systolic II/ best hear at the apex abdomen is soft, non tender, non distended No edema in lower extremities no JVD Pt update on day of discharge Patient states shortness of breath is much improved. Denies chest pain. The patient is on room air on nasal cannula. Walk test ordered and the patient does not need oxygen to go home. We'll discharge on oral cefuroxime to complete 14 days to mycin to complete 5. Hospital Course (1) Sepsis Patient admitted to the medical floor. Patient started on supportive treatment with Rocephin, IV azithromycin and IV fluids. Blood cultures obtained in the [place] ED negative to date Sepsis present on admission with leukocytosis and bandemia of 15%. Sepsis resolved with resolved leukocytosis and resolved bandemia. (2) Pneumonia involving left lung Chest x-ray showed a left sided infiltrate. The patient was admitted to the medical floor for further therapy with IV antibiotics with azithromycin and Rocephin. Patient also started on DuoNeb nebulizer treatments which will be continued. Patient also placed on supplemental oxygen to keep an oxygen saturation more than 92%. Upon review of the chest x-ray it is noted that the location of the infiltrate somewhat unusual and given that the patient has a history of being a former smoker and a previous history of breast cancer I will order a CT of the chest without IV contrast to rule out any possible existing mass. CT chest showed a left upper and lower lobe pneumonia with a tiny pleural effusion. It also showed a 2.6 mm right upper lobe pulmonary nodule. Consider 6 month with a follow-up noncontrast chest CT recommended (3) Type 2 diabetes mellitus. SSI with insulin NovoLog, monitor Accu-Cheks. Blood sugars remained stable during hospital stay. (4) Asthma Remained stable. The patient did not have any wheezing on exam. Continue DuoNeb treatments. (5) Hypertension Patient's blood pressure had been elevated, however improved. Continue with home antihypertensive medications. The patient is currently on lisinopril and amlodipine. DVT prophylaxis: Lovenox 40 mg subcutaneous every 24 hours Pt Condition on Discharge: Stable Discharge Disposition: Discharge Home Discharge Time: <= 30 minutes Discharge Instructions DIET: Follow Instructions for: As Tolerated, No Restrictions Activities you can perform: Regular-No Restrictions Activities to Avoid: Strenuous Activity Follow up Referrals: PCP Follow-up - 2 Weeks Pulmonology - 2 Weeks Needs follow-up CT for right upper lobe lung nodule. New Medications: Azithromycin (Azithromycin) 500 Mg Tab 500 MG PO DAILY for Infection, #2 TAB 0 Refills Cefuroxime (Cefuroxime) 500 Mg Tab 500 MG PO BID for Infection, #22 TAB 0 Refills Continued Medications: Albuterol 18 GM Inh (Ventolin Hfa 18 GM Inh) 90 Mcg/Act Aer 2 PUFF INH Q4-6H PRN for prn, INHALER 0 Refills Amlodipine (Amlodipine) 10 Mg Tab 10 MG PO DAILY for Blood Pressure Management, #30 TAB 0 Refills Fluticasone-Salmeterol Inh (Advair Diskus Inh) 250-50 Mcg/Blist Aer 1 PUFF INH BID for Shortness of Breath, #1 INHALER 0 Refills Rinse mouth after use. Lisinopril (Lisinopril) 20 Mg Tab 20 MG PO DAILY, TAB 0 Refills Metformin (Metformin) 500 Mg Tab 500 MG PO BIDPC for Blood Sugar Management, TAB 0 Refills Montelukast (Singulair) 10 Mg Tab 10 MG PO DAILY, #30 TAB 0 Refills Fcplu-7-Nuwv Ethyl Esters (Lovaza) 1 Gm Cap 1 GM PO BID for Manage Triglycerides, #120 CAP 0 Refills Omeprazole (Omeprazole) 40 Mg Cap 40 MG PO DAILY, CAP 0 Refills Pravastatin (Pravastatin) 10 Mg Tab 10 MG PO DAILY for Cholesterol Management, TAB 0 Refills Trazodone (Trazodone) 50 Mg Tab 10 MG PO DAILY for Control Depression, #30 TAB 0 Refills Discontinued Medications: Famotidine (Famotidine) 20 Mg Tab 20 MG PO DAILY, #60 TAB 0 Refills Fluticasone 12 GM Inh (Flovent Hfa 12 GM Inh) 110 Mcg/Act Inh 1 PUFF INH BID PRN for prn, INHALER 0 Refills Lisinopril (Lisinopril) 20 Mg Tab 20 MG PO BID, TAB 0 Refills [place]-3 Fatty Acids (Fish Oil 1000 mg) 300 Mg-1,000 Mg Cap 1000 MG DAILY Rkii Schwarz MD Apr 02, 2017 17:26
== END 2017-04-02 18:19 | disposition home or self-care (01) | DRG 871 ==
LOC: NEDDLT 20:50 → NEPHCDU 21:00
PROVIDERS: ADMIT Hospitalist; ATTEND Hospitalist
DX: A41.9 Sepsis, unspecified organism (principal); J18.9 Pneumonia, unspecified organism; I10 Essential (primary) hypertension; E11.9 Type 2 diabetes mellitus without complications; Z79.84 Long term (current) use of oral hypoglycemic drugs; Z85.3 Personal history of malignant neoplasm of breast; Z90.10 Acquired absence of unspecified breast and nipple; J45.909 Unspecified asthma, uncomplicated; R09.02 Hypoxemia; R91.1 Solitary pulmonary nodule; Z87.891 Personal history of nicotine dependence
CPT/HCPCS: 71045; 71250; 80048; 80053; 82728; 82948; 83540; 83550; 83605; 84484; 85007; 85025; 85027; 87040; 87804; 94618; 94640; 94664; 96361; 96374; 96375; G8987-GP; G8988-GP; J0456; J0696; J1650; J1815; J7030; J7050